=== PATIENT | female | born 1955 | race Caucasian/White ===

== ENCOUNTER 2018-02-04 15:00 | Emergency (ER) | payer OTHER ==
[~2018-02-04] VITALS: Ht 170.2 cm; Wt 172.4 kg
[2018-02-04] MEDS ORDERED: ACETAMINOPHEN-1 EAC1 PO (17:45)
[2018-02-04] MEDS ORDERED: KEFLEX500 M1 PO (17:45)
[2018-02-04 18:04] VITALS: BP 157/68
== END 2018-02-04 18:05 | disposition home or self-care (01) ==
LOC: ER 15:00
DX: S62.611A Displaced fracture of proximal phalanx of left index finger, initial encounter for closed fracture (principal); S50.312A Abrasion of left elbow, initial encounter; S60.512A Abrasion of left hand, initial encounter; S80.812A Abrasion, left lower leg, initial encounter; S80.212A Abrasion, left knee, initial encounter; S00.31XA Abrasion of nose, initial encounter; V48.4XXA Person boarding or alighting a car injured in noncollision transport accident, initial encounter; Y92.89 Other specified places as the place of occurrence of the external cause; Y93.89 Activity, other specified; Y99.8 Other external cause status